=== PATIENT | female | born 2000 | race Hispanic/Latino ===

== ENCOUNTER 2021-10-10 08:20 | Outpatient (CLI) | payer BC ==
[2021-10-10 09:30] LABS: Basophils # (Auto) 0.1 K/mm3 (0.0-0.1); Basophils % (Auto) 0.9 % (0.0-1.8); Eosinophils # (Auto) 0.1 K/mm3 (0.0-0.4); Eosinophils % (Auto) 1.9 % (0.0-4.3); Hemoglobin 14.9 gm/dl (10.1-14.3); Lymphocytes # (Auto) 2.5 K/mm3 (1.2-5.4); Lymphocytes % (Auto) 39.9 % (13.4-35.0); Mean Corpuscular HGB Conc 33 % (30-34); Mean Corpuscular Volume 88 fl (79-97); Monocytes # (Auto) 0.3 K/mm3 (0.0-0.8); Monocytes % (Auto) 4.7 % (0.0-7.3); Platelet Count 327 K/mm3 (140-440); Red Cell Distribution Width 12.9 % (13.2-15.2)
[2021-10-10 09:41] LABS: Alanine Aminotransferase 14 units/L (7-56); Blood Urea Nitrogen 8 mg/dL (7-17); Calcium 9.6 mg/dL (8.4-10.2); Chol/HDL Ratio 2.84 %; HDL Cholesterol 72 mg/dL (40-59); Hemolysis Index 5; LDL Cholesterol,Direct 128 mg/dL (50-130)
[2021-10-10 09:48] LABS: Erythrocyte Sedimentation Rate 1 mm/Hr (0-20)
[2021-10-10 09:50] LABS: BUN/Creatinine Ratio 13
== END 2021-10-10 08:21 | disposition home or self-care (01) ==
LOC: LAB 08:20
PROVIDERS: ATTEND Internal Medicine
DX: Z13.1 Encounter for screening for diabetes mellitus (principal); Z00.00 Encounter for general adult medical examination without abnormal findings; K90.41 Non-celiac gluten sensitivity; E55.9 Vitamin D deficiency, unspecified; R53.83 Other fatigue
CPT/HCPCS: 36415; 80053; 80061; 82306; 83036; 84443; 85025; 85652; 86038; 86140; 86256

== ENCOUNTER 2021-11-12 08:44 | Outpatient (CLI) | payer BC | END 2021-11-12 08:45 | disposition home or self-care (01) | LOC: LAB 08:44 | PROVIDERS: ATTEND Internal Medicine | DX: R68.2 Dry mouth, unspecified (principal) | CPT/HCPCS: 36415; 86235 ==